=== PATIENT | female | born 1970 | race Hispanic/Latino ===

== ENCOUNTER 2017-08-12 05:41 | Day surgery (SDC) | payer BC ==
[~2017-08-12] VITALS: Ht 154.9 cm; Wt 63.5 kg
[~2017-08-12 05:41] MED LIST: HYDROCHLOROTHIA25 MG PO; IBUPROFEN100 MG PO; LIPITOR40 MG PO; LISINOPRIL10 MG PO; LUNESTA1 MG PO; MULTIVITAMINS1 EAC7 PO; NORCO 5-325 TA1 EACH PO; PROPRANOLOL HCL20 MG PO; VITAMIN D35000 UNI1 PO
--- NOTE | 2017-08-12 08:50 | NUR ---
08/12/17 0849 Elmira Dwyer 0841-PATIENT ARRIVED TO PACU ON 6L MASK O2 SAT 100% PATIENT REACTIVE TO VOICE. SR. 0845-PATIENT AROUSES TO VEBRAL STIMULI REPORTS CHEST TIGHT LIKE ASTHMA BP ELEVATED. PER [facility] AIDE GIVE 1 MG VERSED IVP AND ALBUTEROL BREATHING TX.
--- NOTE | 2017-08-12 09:38 | NUR ---
LE 0921: PT RETURNED TO ROOM 5 FROM PACU VIA STRETCHER. SISTER AT BEDSIDE. PT DROWSY BUT EASY TO AROUSE. PT RATES PAIN 7/10, DILAUDID GIVEN. DENIES NAUSEA AT THIS TIME. WATER AT BEDSIDE. NO FURTHER NEEDS AT THIS TIME. CALL LIGHT IN REACH.
--- NOTE | 2017-08-12 11:11 | NUR ---
LE 1025: IN TO CHECK ON PT, VITALS OBTAINED. PT C/O OF NAUSEA. ZOFRAN GIVEN. PT RATES PAIN /10, NOT IMPROVING. DILAUDID 0.5 MG GIVEN. CRACKERS AND JELLO GIVEN PER PT REQUEST. WATER AT BEDSIDE. SISTER AT BEDSIDE. PT RESTING, CALL LIGHT IN REACH.
--- NOTE | 2017-08-12 11:39 | NUR ---
LE 1130: IN TO CHECK ON PT, VITALS OBTAINED. PT STATES NAUSEA HAS IMPROVED, BUT CONTINUES TO RATE PAIN 02/21. PT STATES "IT'S JUST THE TOP ONE" WHEN ASKED ABOUT PAIN IN SURGICAL SITES. NORCO GIVEN FOR PAIN. PT REPOSITIONED TO R SIDE BY SELF. NO FURTHER NEEDS AT THIS TIME, CALL LIGHT IN REACH. SISTER AT BEDSIDE, REQUEST RX FOR HOME. HARDCOPY RX GIVEN TO SISTER TO TAKE TO PHARMACY.
--- NOTE | 2017-08-12 12:50 | NUR ---
LE 1245: IN TO CHECK ON PT, PT AWAKE WATCHING TV. PT RATES PAIN 0/10 AT THIS TIME. PT STATES " I AM READY TO GO HOME." PT DENIES THE NEED TO URINATE AT THIS TIME. DENIES NAUSEA. PT SL, ASSISTED TO SITTING AT EDGE OF BED. TOLERATED WELL. PT NOTED TO HAVE ADEQUATE PO INTAKE. SISTER AT BEDSIDE ASSISTING WITH DRESSING. CALL LIGHT IN REACH.
--- NOTE | 2017-08-13 16:42 | OR ---
[facility] [address], [place] [address] Signed DATE OF OPERATION: 08/12/2017 SURGEON: Phillip Mota MD PREOPERATIVE DIAGNOSES: 1. Chronic cholecystitis. 2. Fatty liver. 3. Elevated transaminases. POSTOPERATIVE DIAGNOSES: 1. Chronic cholecystitis with cholesterolosis. 2. Fatty liver. 3. Elevated transaminases. PROCEDURES: 1. Laparoscopic cholecystectomy with intraoperative cholangiogram. 2. Needle liver biopsy. ESTIMATED BLOOD LOSS: None. FINDINGS: Prashant had significant cholesterolosis of her gallbladder consistent with a strawberry gallbladder. She also had some fatty discoloration to the liver, although not severe. The intraoperative cholangiogram was unremarkable. INDICATIONS: Prashant is a 47-year-old female, who over the last couple of months has had trouble with right upper quadrant abdominal pain. It has made worse with meals. It is to the point, it is constant. It is making it hard to drive. The pain is a 6 or 8/10. 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 She said it has been very difficult to work. Her insurance and benefits clerk ordered an ultrasound and blood work. Her liver function tests were little elevated, but the ultrasound was unremarkable except for the fatty liver. Consequently, she was sent for a HIDA scan. Her gallbladder ejection fraction was low at 31% and injection of the CCK reproduced her symptoms. As a result, she was asked to see me as a general surgeon. I met with Prashant in the office along with her family. She was given brochures one written in Macedonian, one written in Urdu with respect to the gallbladder. We looked at that together in detail. She understands the location and function of the gallbladder. She understands laparoscopic versus open cholecystectomy. We did review the expected intraop and postop course. There is risk of surgery including, but not Electronically Signed By: PHILLIP MOTA MD 08/13/17 7535 PATIENT NAME: PRASHANT BYRD OPERATIVE REPORT DATE OF : 72 PHYSICIAN: PHILLIP MOTA MD REPORT #: [id number] REPORT IS CONFIDENTIAL AND NOT TO BE RELEASED WITHOUT AUTHORIZATION [facility] [address], [place] [address] Signed limited to, bleeding, infection, scarring, change in contour of the skin, damage to bowel, damage to main bile duct, incisional hernias, and other unforeseen comorbidities. She expressed understanding and wished to proceed with her gallbladder surgery and liver biopsy. PROCEDURE NOTE: I met with Prashant and her family in our preop area. After this, Prashant was taken into our operating room and placed in the supine position under general endotracheal tube anesthesia. She was given preoperative antibiotics along with subcutaneous heparin. SCDs were utilized. She was then prepped and draped in the usual sterile fashion. All trocars were placed in usual positions under direct visualization of camera without difficulty. The findings were as above. The gallbladder was grasped and elevated in the right upper quadrant. Pictures were taken throughout for photodocumentation. The triangle of Calot was very carefully dissected free and a clip was placed across the cystic artery and it was divided. The intraoperative cholangiocatheter was then inserted into the cystic duct. The intraoperative cholangiogram was unremarkable. The cystic duct stump was then secured with a PDS Endoloop along with a clip to ioana its location. After this, the gallbladder was carefully removed from the gallbladder fossa with the help of the cautery and placed into an EndoCatch bag. We then used our needle. We then proceeded to take the needle biopsy from the right lobe of the liver, slightly lateral and slightly behind the area of the gallbladder fossa. On inspection, this gave us a nice core lesion. Hemostasis at the biopsy site was easily achieved with the cautery. The right upper quadrant was then irrigated and suctioned out until clear. We used our laparoscopic suturing device to pass 0 Vicryl suture on either side of the fascia of the subxiphoid trocar site. This was tied down to close this fascia primarily. After this, all the gas was allowed to escape and all the trocars were removed along with the gallbladder. The gallbladder was opened on the back table by our circulating nurse. Again, she has significant cholesterolosis. The fascia of the supraumbilical trocar site was then closed with interrupted and [id number] 0 Vicryl sutures. Local anesthetic was injected into all trocar sites. Each trocar site was irrigated and suctioned out until clear. The skin and dermis of each trocar site were closed with interrupted 3-0 subcuticular Monocryl sutures. Dry gauze and tape were then applied to all incisions. Prashant was then awakened from her anesthesia, extubated in the OR, and taken to recovery room in stable condition. Phillip Mota MD Electronically Signed By: PHILLIP MOTA MD 08/13/17 1642 PATIENT NAME: PRASHANT BYRD OPERATIVE REPORT DATE OF : 72 PHYSICIAN: PHILLIP MOTA MD REPORT #: [id number] REPORT IS CONFIDENTIAL AND NOT TO BE RELEASED WITHOUT AUTHORIZATION [facility] [address], [place] [address] Signed ALB/MODL /[id number] cc: Prashant Grant MD [place], [place] Electronically Signed By: PHILLIP MOTA MD 08/13/17 1642 PATIENT NAME: PRASHANT BYRD OPERATIVE REPORT DATE OF : 72 PHYSICIAN: PHILLIP MOTA MD REPORT #: [id number] REPORT IS CONFIDENTIAL AND NOT TO BE RELEASED WITHOUT AUTHORIZATION
== END 2017-08-12 13:00 | disposition home or self-care (01) ==
LOC: DS 05:41
PROVIDERS: Colon & Rectal Surgery
PROC: 0FB00ZX Excision of Liver, Open Approach, Diagnostic (ICD-10-PCS; 2017-08-12)
PROC: 0FT44ZZ Resection of Gallbladder, Percutaneous Endoscopic Approach (ICD-10-PCS; principal; 2017-08-12 06:45)
PROC: BF12YZZ Fluoroscopy of Gallbladder using Other Contrast (ICD-10-PCS; 2017-08-12 06:45)
DX: K80.10 Calculus of gallbladder with chronic cholecystitis without obstruction (principal); K76.0 Fatty (change of) liver, not elsewhere classified; K75.9 Inflammatory liver disease, unspecified; I10 Essential (primary) hypertension; Z79.899 Other long term (current) drug therapy
CPT/HCPCS: 00790; 74300; J0694; J1100; J1644; J1885; J2250; J2405; J2550; J2704; J3010; J7120; Q9967

== ENCOUNTER 2021-11-04 05:40 | Day surgery (SDC) | payer OTHER ==
[~2021-11-04] VITALS: Ht 154.9 cm; Wt 62.7 kg
[~2021-11-04 05:40] MED LIST changes: +AMBIEN10 MG PO; +BUPROPION XL150 MG PO; +LIPITOR10 MG PO; +WIXELA 500-501 EACH; +ZOLOFT50 MG PO
[2021-11-04] MEDS ORDERED: COZAAR25 MG PO (06:04)
--- NOTE | 2021-11-04 08:12 | NUR ---
11/04/21 0812 Roseanne George 0805-PT TO PACU IN SUPINE POSITION. EYES CLOSED WITH ORAL AIRWAY IN PLACE. DOES NOT RESPODN TO VERBAL OR TACTILE STIMULI. BREATHING EASY AND UNLABORED. SPO2 >95% ON 10 L O2 VIA SIMPLE MASK. 0810- PT CONTINEUS TO SLEEP WITH ORAL AIRWAY IN PLACE. BREATHING EASY AND UNLABORED. SPO2 >95% O2 TITRATED DOWN TO 6 L.
--- NOTE | 2021-11-04 09:12 | NUR ---
0900: PT RETURNS TO UNIT FROM PACU VIA STRETCHER. DROWSY ON ARRIVAL. VSS, RESP EVEN AND UNLABORED. DENIES PAIN AND NAUSEA. PERIPAD IN PLACE, SMALL AMOUNT OF RED DRAINAGE NOTED. SCDS IN PLACE. ROSY REYNOLDS APPLIED AND POC DISCUSSED. CRACKERS AND WATER PROVIDED. PT COMFORTABLE WITHOUT NEEDS AND REQUESTS, CALL LIGHT WITHIN REACH
--- NOTE | 2021-11-04 10:09 | NUR ---
0955: PT REPORTS URGE TO VOID. VSS, RESP EVEN AND UNLABORED. DANGLED AT THE BEDSIDE. MARIELLA WELL, DENIES DIZZINESS AND SOB. AMBULATES TO BR WITH STANDBY ASSIST FROM THIS RN. SUCCESSFUL SECOND POSTOP VOID, UNMEASURED. SMALL AMOUNT OF RED DRAINAGE NOTED ON PERIPAD. SL REMOVED WITH CATH TIP INTACT AND PRESSURE APPLIED TO SITE, WNL. TO DRESS SELF FOR DC.
--- NOTE | 2021-11-04 10:21 | NUR ---
1015: DC INSTRUCTIONS PROVIDED AND DISCUSSED ORDERED. PT VOICES UNDERSTANDING AND DENIES QUESTIONS AND CONCERNS AT THIS TIME. 1020: WHEELED OFF OF UNIT IN WC. NO PHYSICAL S/S OF DISTRESS AT THIS TIME
--- NOTE | 2021-11-05 06:49 | OR ---
[facility] [address], [place] [address] Signed DATE OF OPERATION: 11/04/2021 SURGEON: Latisha Grant MD PREOPERATIVE DIAGNOSES: Menometrorrhagia, endometrial polyps. POSTOPERATIVE DIAGNOSES: Menometrorrhagia, endometrial polyps. PROCEDURE: Hysteroscopy, resection of polyps. ANESTHESIA: General LMA. ESTIMATED BLOOD LOSS: Minimal. DRAINS: None. INDICATIONS AND FINDINGS: The patient is a 51-year-old female, who has been having abnormal bleeding. Ultrasound revealed probable endometrial polyps. At the time of surgery, exam under anesthesia revealed a normal-size uterus. There was moderate descensus. The cavity sounded to 7 cm. There were multiple polyps within the cavity. DESCRIPTION OF PROCEDURE: The patient was prepped and draped in the dorsal lithotomy position. A weighted speculum was placed. The anterior lip of the cervix was visualized and grasped with a single-tooth tenaculum. The cavity was sounded to 7 cm. The endocervical canal was then dilated easily to a #8 dilator. Following this, the MyoSure device was placed. The cavity was evaluated and multiple polyps were seen. The MyoSure Lite was then introduced. The endometrial polyps were removed without difficulty. At the conclusion, the cavity appeared to be smooth and regular. Following this, the procedure was complete. The tenaculum was removed. There was some bleeding from the tenaculum sites, which required two [id number] sutures of 0 chromic. There was also some bleeding just from a raw area around the cervical opening. This was treated with cautery with good results. All sponge and needle counts were correct. She was taken to the recovery Electronically Signed By: LATISHA GRANT MD 11/05/21 0649 PATIENT NAME: LATISHA BYRD OPERATIVE REPORT DATE OF : 72 REPORT #: [id number] PHYSICIAN: LATISHA GRANT MD PCP: Oleg Almaraz DO REPORT IS CONFIDENTIAL AND NOT TO BE RELEASED WITHOUT AUTHORIZATION [address] [address] Signed room in good condition. Latisha Grant MD PJW/MODL /[id number] Copies: ~ Electronically Signed By: LATISHA GRANT MD 11/05/21 0649 PATIENT NAME: LATISHA BYRD OPERATIVE REPORT DATE OF : 72 REPORT #: [id number] PHYSICIAN: LATISHA GRANT MD PCP: Oleg Almaraz DO REPORT IS CONFIDENTIAL AND NOT TO BE RELEASED WITHOUT AUTHORIZATION
== END 2021-11-04 10:20 | disposition home or self-care (01) ==
LOC: DS 05:40
PROVIDERS: ATTEND Obstetrics & Gynecology
PROC: 0UB98ZZ Excision of Uterus, Via Natural or Artificial Opening Endoscopic (ICD-10-PCS; principal; 2021-11-04 07:30)
DX: N84.0 Polyp of corpus uteri (principal); N92.1 Excessive and frequent menstruation with irregular cycle
CPT/HCPCS: J1100; J1790; J1885; J2250; J2405; J2704; J2765; J3010; J7121